=== PATIENT | female | born 1960 | race American Indian/Alaskan Native ===

== ENCOUNTER 2017-01-30 09:29 | Outpatient (CLI) | payer BC ==
--- NOTE | 2017-01-31 09:52 | Mammography Report ---
Bilateral mammogram: Compared to 01/29/16. CAD study utilized. Findings: Patient is status post right breast surgery. Surgical scar with clips identified at the approximate 12:00 position. No significant interval change compared to previous study. Left breast appears unremarkable. Impression: No significant interval change compared to previous study.
== END 2017-01-30 09:30 | disposition home or self-care (01) ==
LOC: MAMMO 09:29
PROVIDERS: ATTEND Internal Medicine
DX: Z12.31 Encounter for screening mammogram for malignant neoplasm of breast (principal); Z98.890 Other specified postprocedural states
CPT/HCPCS: 77067; G0202

== ENCOUNTER 2018-02-05 07:41 | Outpatient (CLI) | payer BC ==
--- NOTE | 2018-02-05 14:09 | Mammography Report ---
BILATERAL DIGITAL SCREENING MAMMOGRAM WITH CAD: 02/05/18 07:41:00 CLINICAL: Routine screening.Breast cancer survivor status post right partial mastectomy , radiation therapy and chemotherapy. COMPARISON:01/30/17 FINDINGS: The breasts are mostly fatty with a few residual scattered fibroglandular densities. The right breast is smaller than the left with stable benign postsurgical scar. Surgical clips and dystrophic calcifications at the scar. No mass, suspicious architectural distortion or suspicious calcifications. IMPRESSION: No mammographic evidence of malignancy. BI-RADS CATEGORY: 2 -- Benign RECOMMENDATION: Routine mammographic screening in one year. COMMENT: Patient follow-up letters are generated via our [employer] application.
== END 2018-02-05 07:42 | disposition home or self-care (01) ==
LOC: MAMMO 07:41
PROVIDERS: ATTEND Internal Medicine
DX: Z12.31 Encounter for screening mammogram for malignant neoplasm of breast (principal)
CPT/HCPCS: 77067